=== PATIENT | female | born 1945 | race Caucasian/White ===

== ENCOUNTER 2018-06-26 20:57 | Observation (INO) ==
[2018-06-26] MEDS ORDERED: Aspirin 325 MG TABLET PO ONE (21:14)
[2018-06-26 21:29] LABS: Basophils # 0.1 K/mcL (0.0-0.2); Basophils % 0.8 %; Eosinophils # 0.1 K/mcL (0.0-0.6); Eosinophils % 1.8 %; Hematocrit 39.1 % (35.3-44.9); Hemoglobin 12.9 g/dL (11.5-15.4); Immature Granulocytes % 0.1 % (0-4); Lymphocytes # 2.7 K/mcL (0.6-4.6); Lymphocytes % 34.4 %; Mean Corpuscular Hemoglobin 30.5 pg (28.0-33.3); Mean Corpuscular Volume 92.4 fL (83.0-100.0); Mean Platelet Volume 10.6 fL (9.4-12.4); Monocytes # 0.7 K/mcL (0.0-1.3); Monocytes % 8.4 %; Neutrophils # 4.2 K/mcL (1.6-8.9); Platelet Count 173 K/mcL (140-400); Red Blood Count 4.23 M/mcL (3.82-4.97); Red Cell Distribution Width 12.3 % (11.5-14.5); Segmented Neutrophils % 54.5 %
--- NOTE | 2018-06-26 21:51 | Emergency Department Note ---
Disposition Clinical Impression: Chest pain Qualifiers: Chest pain type: unspecified Qualified Code(s): R07.9 - Chest pain, unspecified Disposition: Admitted As Inpatient Condition: Good General Adult HPI - General Chief complaint: ED Chest Pain Stated complaint: cp Time Seen by Provider: 06/26/18 21:04 Source: patient, family Mode of arrival: ambulatory Limitations: no limitations Nursing Notes Reviewed: Yes Vital Signs Reviewed: Yes - History of Present Illness HPI Narrative: 72-year-old female with significant past medical history of atrial fibrillation currently on eliquis presenting to the emergency department chief complaint of chest pain. Patient states his evening after she ate she had upper epigastric and lower substernal severe chest pressure. Radiated across her chest. Denies vomiting or diaphoresis. Does disclose mild nausea. Patient denies any history of coronary artery disease. Has never had a cardiac workup. Patient chest pain-free at this time. Patient states at first she thought it was her acid reflux that she was recently placed on Protonix and Carafate but that it felt different because she has never had pressure in this area before. Patient denies any recent illnesses, fevers, abdominal pain. Patient did have a pa cemaker placed in October and states she has been mildly short of breath since but this is unchanged. Pain Scale: 0 - Related Data Allergies Allergy/AdvReac Type Severity Reaction Status Date / Time No Known Allergies Allergy Verified 06/26/18 21:00 Limitations: ROS unobtainable due to patients medical condition Constitutional: Denies: fever, chills, weakness Eyes: Reports: as per HPI ENT ED: Reports: as per HPI Cardiovascular: Reports: chest pain, dyspnea on exertion. Denies: palpitations Respiratory: Reports: dyspnea. Denies: cough, wheezes, hemoptysis Gastrointestinal: Reports: nausea. Denies: abdominal pain, vomiting Genitourinary: Reports: as per HPI Musculoskeletal: Reports: as per HPI Integumentary: Reports: as per HPI Neurological: Denies: weakness, numbness, paresthesias Psychiatric: Reports: as per HPI Endocrine: Reports: as per HPI Hematological/Lymphatic: Reports: as per HPI Allergic/Immunologic: Reports: as per HPI Past Medical History - Past Medical History Attestation: Yes The following information was validated with the patient. Medical history: Reports: atrial fibrillation, hyperlipidemia, hypertension Psychiatric history: Reports: depression - Social History Smoking Status: Never smoker Alcohol use: Reports: rarely Drug use: Reports: none Physical Exam - General Limitations: no limitations General appearance: alert, in no apparent distress - Head Head exam: atraumatic, normocephalic, normal inspection - Eye Eye exam: Present: normal appearance. Absent: scleral icterus, conjunctival injection - ENT ENT exam: normal exam, mucous membranes moist - Neck Neck exam: Present: normal inspection, full ROM. Absent: tenderness, meningismus - Chest Chest inspection: Present: normal inspection, symmetric chest wall rise. Absent: tenderness, rash - Respiratory Respiratory exam: Present: normal lung sounds bilaterally. Absent: respiratory distress, wheezes - Cardiovascular Cardiovascular exam: Present: regular rate, normal rhythm, normal heart sounds - Abdominal Exam Abdominal exam: Present: soft, Non-Tender. Absent: distention, guarding, rebound - Extremities Exam Extremities exam: Present: normal inspection, full ROM - Neurological Exam Neurological exam: Present: alert, oriented X3 - Psychiatric Psychiatric exam: Present: normal affect, normal mood - Skin Skin exam: Present: warm, intact Course Course Narrative: 72-year-old male presenting for chest pain. In the room patient is alert and oriented 3 and hemodynamically stable. Patient chest pain-free at this time. Chest pain occurred just prior to arrival. Due to patient's history and age patient will most likely be admitted for chest pain rule out. We will obtain chest pain workup including EKG, troponin and chest x-ray. Disposition most likely admission the pending results. Patient agreed with this plan. - Reevaluation(s) Reevaluation #1: Patient's laboratory analysis showed elevated creatinine. No other lab analysis to compare to at this time. Otherwise labs within normal limits. Chest x-ray within normal limits. Patient has remained chest pain-free throughout her stay. She is alert and oriented 3 and hemodynamically stable. Provided a full dose aspirin. At this time will plan to admit the patient for further chest pain rule out. I spoke with the hospitalist propellant charge zone assembler Dr. Bansal who agrees to accept the patient at this time. He would like us to start maintenance fluids for the patient at 100 mL per hour. Vital Signs Temperature 98.0 F 06/26/18 21:00 Pulse Rate 60 06/26/18 21:00 Respiratory Rate 17 06/26/18 21:00 Blood Pressure 162/80 06/26/18 21:00 O2 Sat by Pulse Oximetry 95 06/26/18 21:00 Temperature 98.0 F 06/26/18 21:00 Pulse Rate 60 06/26/18 21:13 Respiratory Rate 14 06/26/18 21:13 Blood Pressure 148/83 06/26/18 21:13 O2 Sat by Pulse Oximetry 98 06/26/18 21:13 Oxygen Delivery Oxygen Delivery Room Air Medical Decision Making - Lab Data Result diagrams: 06/26/18 21:24 06/26/18 21:24 Lab Results 06/26/18 06/26/18 Range/Units 21:24 21:24 WBC 7.7 (4.3-11.1) K/mcL RBC 4.23 (3.82-4.97) M/mcL Hgb 12.9 (11.5-15.4) g/dL Hct 39.1 (35.3-44.9) % MCV 92.4 (83.0-100.0) fL MCH 30.5 (28.0-33.3) pg MCHC 33.0 (31.6-35.5) g/dL RDW 12.3 (11.5-14.5) % Plt Count 173 (140-400) K/mcL MPV 10.6 (9.4-12.4) fL Immature Gran % 0.1 (0-4) % Seg Neutrophils % 54.5 % Lymphocytes % 34.4 % Monocytes % 8.4 % Eosinophils % 1.8 % Basophils % 0.8 % Neutrophils # 4.2 (1.6-8.9) K/mcL Lymphocytes # 2.7 (0.6-4.6) K/mcL Monocytes # 0.7 (0.0-1.3) K/mcL Eosinophils # 0.1 (0.0-0.6) K/mcL Basophils # 0.1 (0.0-0.2) K/mcL Sodium 139 (136-145) mEq/L Potassium 3.7 (3.5-5.1) mEq/L Chloride 102 (98-107) mEq/L Carbon Dioxide 28 (23-29) mEq/L BUN 24 H (8-23) mg/dL Creatinine 1.58 H (0.60-1.20) mg/dL Est GFR ( Amer) 39 L (> 60) Est GFR (Non-Af Amer) 32 L (> 60) BUN/Creatinine Ratio 15 (6-26) Glucose 131 H (70-105) mg/dL Calculated Osmolality 294 (280-300) Calcium 10.3 (8.6-10.3) mg/dL Troponin I < 0.03 (< 0.04) ng/mL - EKG Data EKG #1 EKG attestation: Yes I reviewed and interpreted this EKG. EKG results narrative: Atrial paced rhythm. 60 beats per minute. AL interval 173, QRS 111, QTC 426. Significant artifact. No sign of acute ST segment elevation or ischemia.
[2018-06-26 21:53] LABS: BUN/Creatinine Ratio 15 (6-26); Blood Urea Nitrogen 24 mg/dL (8-23); Calcium 10.3 mg/dL (8.6-10.3); Carbon Dioxide 28 mEq/L (23-29); Chloride 102 mEq/L (98-107); Glucose 131 mg/dL (70-105); Osmolality,Calculated 294 (280-300); Potassium 3.7 mEq/L (3.5-5.1); Sodium 139 mEq/L (136-145); eGFR For Non-African Americans 32 (> 60)
[2018-06-26 21:54] LABS: Troponin I < 0.03 ng/mL (< 0.04)
--- NOTE | 2018-06-26 22:31 | Emergency Department Note ---
Disposition Clinical Impression: Chest pain Qualifiers: Chest pain type: unspecified Qualified Code(s): R07.9 - Chest pain, unspecified Disposition: Admitted As Inpatient Condition: Good Referrals: Connie Benítez MD [Primary Care Provider] - General Adult HPI - General Chief complaint: ED Chest Pain Stated complaint: cp Time Seen by Provider: 06/26/18 21:04 Source: patient, family Mode of arrival: ambulatory Limitations: no limitations Nursing Notes Reviewed: Yes Vital Signs Reviewed: Yes - History of Present Illness Pain Scale: 0 - Related Data Home Medications Medication Instructions Recorded Confirmed Escitalopram [Lexapro] 20 mg PO 06/26/18 Hydrochlorothiazide [Microzide] 06/26/18 06/26/18 Pantoprazole Sodium [Protonix] 40 mg PO 06/26/18 Propafenone HCl [Rythmol Sr] 225 mg PO 06/26/18 Allergies Allergy/AdvReac Type Severity Reaction Status Date / Time No Known Allergies Allergy Verified 06/26/18 21:00 Constitutional: Denies: fever, chills, weakness Eyes: Reports: as per HPI ENT ED: Reports: as per HPI Cardiovascular: Reports: chest pain, dyspnea on exertion. Denies: palpitations Respiratory: Reports: dyspnea. Denies: cough, wheezes, hemoptysis Gastrointestinal: Reports: nausea. Denies: abdominal pain, vomiting Genitourinary: Reports: as per HPI Musculoskeletal: Reports: as per HPI Integumentary: Reports: as per HPI Neurological: Denies: weakness, numbness, paresthesias Psychiatric: Reports: as per HPI Endocrine: Reports: as per HPI Hematological/Lymphatic: Reports: as per HPI Allergic/Immunologic: Reports: as per HPI Past Medical History - Past Medical History Medical history: Reports: atrial fibrillation, hyperlipidemia, hypertension Psychiatric history: Reports: depression - Social History Smoking Status: Never smoker Alcohol use: Reports: rarely Drug use: Reports: none Physical Exam - General Limitations: no limitations General appearance: alert, in no apparent distress Course Vital Signs Temperature 98.0 F 06/26/18 21:00 Pulse Rate 60 06/26/18 21:00 Respiratory Rate 17 06/26/18 21:00 Blood Pressure 162/80 06/26/18 21:00 O2 Sat by Pulse Oximetry 95 06/26/18 21:00 Temperature 98.0 F 11/11/18 21:00 Pulse Rate 60 06/26/18 21:13 Respiratory Rate 14 06/26/18 21:13 Blood Pressure 148/83 06/26/18 21:13 O2 Sat by Pulse Oximetry 98 06/26/18 21:13 Oxygen Delivery Oxygen Delivery Room Air Medical Decision Making - Lab Data Lab results reviewed: Yes I reviewed the patient's lab results. Result diagrams: 06/26/18 21:24 06/26/18 21:24 Lab Results 06/26/18 06/26/18 Range/Units 21:24 21:24 WBC 7.7 (4.3-11.1) K/mcL RBC 4.23 (3.82-4.97) M/mcL Hgb 12.9 (11.5-15.4) g/dL Hct 39.1 (35.3-44.9) % MCV 92.4 (83.0-100.0) fL MCH 30.5 (28.0-33.3) pg MCHC 33.0 (31.6-35.5) g/dL RDW 12.3 (11.5-14.5) % Plt Count 173 (140-400) K/mcL MPV 10.6 (9.4-12.4) fL Immature Gran % 0.1 (0-4) % Seg Neutrophils % 54.5 % Lymphocytes % 34.4 % Monocytes % 8.4 % Eosinophils % 1.8 % Basophils % 0.8 % Neutrophils # 4.2 (1.6-8.9) K/mcL Lymphocytes # 2.7 (0.6-4.6) K/mcL Monocytes # 0.7 (0.0-1.3) K/mcL Eosinophils # 0.1 (0.0-0.6) K/mcL Basophils # 0.1 (0.0-0.2) K/mcL Sodium 139 (136-145) mEq/L Potassium 3.7 (3.5-5.1) mEq/L Chloride 102 (98-107) mEq/L Carbon Dioxide 28 (23-29) mEq/L BUN 24 H (8-23) mg/dL Creatinine 1.58 H (0.60-1.20) mg/dL Est GFR ( Amer) 39 L (> 60) Est GFR (Non-Af Amer) 32 L (> 60) BUN/Creatinine Ratio 15 (6-26) Glucose 131 H (70-105) mg/dL Calculated Osmolality 294 (280-300) Calcium 10.3 (8.6-10.3) mg/dL Troponin I < 0.03 (< 0.04) ng/mL - Radiology Data Radiology results reviewed: Yes I reviewed the patient's radiology results. Chest X-Ray 06/26/18 21:05 IMPRESSION: No acute cardiopulmonary disease. D/ / Lj Navarro MD / Lj Navarro MD Interpreting Provider: Lj Navarro MD - EKG Data EKG #1 EKG attestation: Yes I reviewed and interpreted this EKG. EKG results narrative: EKG shows an atrial paced rhythm with ventricular rate of 60. No acute ST segment elevation or depression. Attestation Statement - Attestation Attestation: I, Leodan Ro MD, personally evaluated this patient and discussed their management with the resident physician. I reviewed the resident's note and agree with the documented findings, medical decision making, and plan of care. 72-year-old female presents to the emergency department with a complaint of an episode of lower substernal chest discomfort which she describes as like a pressure and tightness in the lower chest. This started around 5 PM and lasted 2-3 hours. Did radiate slightly towards the left chest but no radiation to the neck or jaw or shoulders or down the arms. No radiation to the back. No shortness of breath associated with the episode. No nausea or vomiting. No diaphoresis. No palpitations. Patient has a prior history of atrial fibrillation and bradycardia. She has a pacemaker. Patient denies chest pain at present. She has recently had some problems with gastritis and/or reflux however she states this discomfort this evening was totally different. On examination patient is a well-developed well-nourished well-appearing elderly female in no acute distress. She is alert and oriented 3. There is no cyanosis or diaphoresis. Chest is nontender to palpation. Breath sounds are clear and equal bilaterally. Heart regular rate and rhythm. Abdomen is soft and nontender with normal bowel sounds. Labs reviewed. Troponin negative. Chest x-ray negative. No acute changes on EKG. The hospitalist, Dr. Bansal, was consulted and accepted admission of the patient.
[2018-06-26] MEDS: 0.9 % Sodium Chloride 1,000 ML IVC SCH (22:37)
[2018-06-27] MEDS ORDERED: *HR* Promethazine 25 MG/ML VIAL IVP PRN (00:46)
[2018-06-27] MEDS ORDERED: Naloxone 0.4 MG/ML INJ IVP PRN (00:47)
[2018-06-27] MEDS ORDERED: traMADol 50 MG TABLET PO PRN (00:47)
[2018-06-27] MEDS ORDERED: Nitroglycerin 0.4 MG TAB.SUBL SL PRN (00:51)
[2018-06-27] MEDS ORDERED: GI Cocktail 40 ML EACH PO ONE (00:53)
[2018-06-27] MEDS: 0.9 % Sodium Chloride 1,000 ML IVC SCH (00:58)
[2018-06-27] MEDS ORDERED: 0.9 % Sodium Chloride 1,000 ML IVC SCH (01:00)
--- NOTE | 2018-06-27 01:18 | Internal Med History&Physical ---
Date of Encounter: 06/26/18 Time of Encounter: 23:55 Internal Medicine - H&P: HPI Chief complaint: CP Admitted From: Emergency Dept Plans for Post Hospital Care: Home History of present illness: Ms. Enriquez is a 72 year old female w/PMH of atrial fibrillation on Eliquis, HLD, HTN, GERD, early dementia, and AICD/pacemaker placement in October d/t bradycardia presents from the ED with chief complaint of chest pain that began approximately at 17:00 today while at rest. Patient describes chest pain as pressure in central chest without radiation, states pain was constant, and became progressively worse. Denies previous symptoms. Pt. states that she thought the pain may have been d/t her GERD but this pain was different. Reports father of [place] @ 84 and mother has cardiac hx. Denies diaphoresis, nausea, vomiting. Denies previous cardiac workup or history. No alleviating or aggravating factors. Patient denies recent illness, fever, chills, nausea, vomiting, headache, changes in vision, unusual bleeding, cough, chest congestion, abdominal pain, diarrhea, constipation, dizziness, lightheadedness, pre-syncope, syncope, numbness, or tingling. Past Med Surg Social Fam HX - Past Medical History Source: patient, old records reviewed Medical history: atrial fibrillation, dementia, GERD, hyperlipidemia, hypertension Additional medical history: bradicardia Psychiatric history: depression - Past Surgical History Surgical History: pacemaker/AICD - Social History Smoking Status: Never smoker Alcohol use: rarely Drug use: none Current living situation: Home Activity Level: Independent ambulation Recent Out of Country Travel Within the Last 8 Weeks: No Exposure or Possible Exposure to Illness During Travel: No - Family History Father Race: Family Member Ethnicity: Non- Living Status: Age at : 84 Cause of : [place] Hx Family Cardiac Disorders: Yes ([place], CAD) Mother Race: Family Member Ethnicity: Non- Living Status: Still Living Hx Family Cardiac Disorders: Yes (Pacemaker, Afib, Stents) Brother Race: Family Member Ethnicity: Non- Living Status: Still Living Hx Family Cardiac Disorders: Yes (HTN, HLD) Sister Race: Family Member Ethnicity: Non- Living Status: Still Living Hx Family Cardiac Disorders: Yes (HTN) Internal Medicine - H&P: Meds Apixaban [Eliquis] 5 mg PO BID 06/26/18 [History] Atorvastatin Calcium [Lipitor] 20 mg PO HS 06/26/18 [History] Biotin 5 mg PO DAILY 06/26/18 [History] Cholecalciferol (Vitamin D3) [Vitamin D] 2,000 unit PO DAILY 06/26/18 [History] Escitalopram [Lexapro] 20 mg PO DAILY 06/26/18 [History] Escitalopram [Lexapro] 20 mg PO DAILY 06/26/18 [History] Gluc/Ankit-MSM#1/C/David/Glen/Bor [Osteo Bi-Flex Caplet] 2 each PO DAILY 06/26/18 [History] Hydrochlorothiazide [Microzide] 12.5 mg PO DAILY 06/26/18 [History] Irbesartan [Avapro] 150 mg PO DAILY 06/26/18 [History] Memantine [Namenda] 5 mg PO BID 06/26/18 [History] Metoprolol [Lopressor] 12.5 mg PO DAILY 06/26/18 [History] Multivit/Iron/FA/K/Herb No.244 [Alive [employer] Mv Tablet] 1 each PO DAILY 06/26/18 [History] Pantoprazole Sodium [Protonix] 40 mg PO DAILY 06/26/18 [History] Propafenone HCl [Rythmol Sr] 225 mg PO BID 06/26/18 [History] Sucralfate [Carafate] 1 gm PO 0730,1630 06/26/18 [History] Allergy/AdvReac Type Severity Reaction Status Date / Time No Known Allergies Allergy Verified 06/26/18 21:00 All Systems PM: A 10-system review of systems was performed and is negative for pertinent findings except as documented above in the HPI. - Constitutional Constitutional: no chills, no fever(s), no night sweats - EENT Eyes: no change in vision, no discharge, no pain, no photophobia Ears: no ear discharge, no ear pain, no tinnitus Nose, mouth and throat: no dysphagia, no nasal discharge, no neck pain, no sore throat - Breasts Breasts: as per HPI - Cardiovascular Cardiovascular ROS IM: as per HPI, chest pain, no diaphoresis, no dyspnea, no lightheadedness, no palpitations, no syncope - Respiratory Respiratory: no cough, no dyspnea, no wheezing, no excessive phlegm production - Gastrointestinal Gastrointestinal: as per HPI, heartburn, no abdominal pain, no diarrhea, no hematemesis, no hematochezia, no melena, no nausea, no vomiting - Genitourinary Genitourinary: no change in urinary stream, no dysuria, no flank pain, no hematuria Menstruation: as per HPI - Musculoskeletal Musculoskeletal ROS IM: no numbness, no tingling - Integumentary Integumentary IM: no rash, no unusual bruising - Neurological Neurological ROS: no confusion, no convulsions, no focal weakness, no numbness, no tingling, no tremor(s) - Psychiatric Psychiatric: as per HPI, depression - Endocrine Endocrine IM: as per HPI - Hematologic/Lymphatic Hematologic/Lymphatic: no easy bruising - Allergic/Immunologic Allergic/Immunologic: as per HPI - Constitutional Vitals: Temp Pulse Resp BP Pulse Ox 97.6 F 60 16 160/81 98 06/26/18 23:40 06/26/18 23:40 06/26/18 23:40 06/26/18 23:40 06/26/18 23:40 General appearance: Present: cooperative, A&O X 3, pleasant, no acute distress, obese, answers questions appropriately Exam: Patient examined at bedside. Patient was resting comfortably in bed and denied any chest pain symptoms during examination. Patient reports symptoms began at approximately 5 PM today without exertion and without radiation. Patient does report history of GERD so GI cocktail and IVP Protonix ordered. Pacemaker/AICD placed in October 2017 due to bradycardia. Patient on Eliquis due to history of atrial fibrillation. Patient denies any other complaints at this time. VS: 97.6F temp, HR 60, RR 16, BP 160/81, SPO2 98% on room air. - Head Head exam: Present: atraumatic, normocephalic - Eye Eye exam: Present: PERRL, conjuntiva pink, sclera anicteric Pupils: Present: PERRL - ENT ENT exam: Present: normal exam - Neck Neck exam general surgery: Present: normal inspection, supple, trachea midline. Absent: lymphadenopathy - Respiratory Respiratory exam: Present: CTAB. Absent: accessory muscle use, rales, rhonchi, wheezes - Cardiovascular Cardiovascular exam: Present: RRR, +S1, +S2. Absent: diastolic murmur, gallop, rubs, systolic murmur - GI/Abdominal GI/Abdominal exam: Present: normal bowel sounds, soft, no peritoneal signs. Absent: distended, tenderness - Rectal Rectal exam: Present: deferred - Additional comments: exam deferred. - Extremities Exam Extremities exam: Present: normal inspection, warm, radial pulses palpable and symmetrical. Absent: calf tenderness, cyanotic, pedal edema - Back Exam Back exam: Present: normal inspection - Neurological Exam Neurological exam: Present: alert, CN II-XII intact, oriented X3, no focal deficits. Absent: pronater drift, facial droop, speech deficit - Psychiatric Psychiatric exam: Present: normal affect, normal mood - Skin Skin exam: Present: dry, intact Internal Med - H&P Results - Labs CBC & Chem 7: 06/27/18 03:13 06/26/18 21:24 Labs: Short CBC 06/26/18 Range/Units 21:24 WBC 7.7 (4.3-11.1) K/mcL Hgb 12.9 (11.5-15.4) g/dL Hct 39.1 (35.3-44.9) % Plt Count 173 (140-400) K/mcL Neutrophils # 4.2 (1.6-8.9) K/mcL BMP 06/26/18 21:24 Sodium 139 Potassium 3.7 Chloride 102 Carbon Dioxide 28 BUN 24 H Creatinine 1.58 H Glucose 131 H Calcium 10.3 Cardiac Enzymes 06/26/18 Range/Units 21:24 Troponin I < 0.03 (< 0.04) ng/mL - EKG Data Prior EKG available for review: no EKG comments: 06/27/18 03:15 EKG dated 06/26/18 shows electronic atrial pacemaker. - Impressions ITS Impressions Chest X-Ray 06/26/18 21:05 IMPRESSION: No acute cardiopulmonary disease. D/ / Lj Navarro MD / Lj Navarro MD Interpreting Provider: Lj Navarro MD - Diagnostic Studies Chest x-ray Additional comments: Impressions Chest X-Ray 06/26/18 21:05 IMPRESSION: No acute cardiopulmonary disease. D/ / Lj Navarro MD / Lj Navarro MD Interpreting Provider: Lj Navarro MD - Assessment and plan (1) Chest pain Current Visit: Yes Status: Acute Assessment and plan: Acute CP that began approximately at 17:00 today while at rest. Patient describes chest pain as pressure in central chest without radiation, states pain was constant, and became progressively worse. Denies previous symptoms. Pt. states that she thought the pain may have been d/t her GERD but this pain was different. Reports father of [place] @ 84 and mother has cardiac hx. Denies diaphoresis, nausea, vomiting. Denies previous cardiac workup or history. No alleviating or aggravating factors. Initial troponin <0.03. Will trend. ASA. 80 mg Lipitor ONCE. SL nitro PRN ordered. Echocardiogram. NPO Wednesday @ 00:01 for a.m. nuclear pharm stress test if troponins remain normal. Consider adding Cardiology consult if troponins, Echocardiogram, and/or stress test results abnormal. Continuous cardiac telemetry. Supplemental O2 w/titration PRN. Pt. is high risk for cardiac event and further morbidity d/t current CP at rest, familial hx of cardiac disease (father of [place], mother has atrial fibrillation/pacemaker-AICD/stents), hx; and risk factors of atrial fibrillation, HTN, and HLD. Observation. Qualifiers: Chest pain type: other chest pain Qualified Code(s): R07.89 - Other chest pain; R07.8 - Other chest pain (2) Atrial fibrillation Current Visit: Yes Status: Acute Assessment and plan: Hx of paroxysmal atrial fibrillation. Pacemaker/AICD placed in October d/t bradycardia. Continuous cardiac telemetry. Continue patient's Rythmol and Eliquis. Qualifiers: Atrial fibrillation type: paroxysmal Qualified Code(s): I48.0 - Paroxysmal atrial fibrillation (3) HLD (hyperlipidemia) Current Visit: Yes Status: Chronic Assessment and plan: Hx of chronic HLD. Lipid panel in a.m. labs. Continue pts. Lipitor. One-time high dose of 80 mg tonight and 20 mg HS starting tomorrow. Qualifiers: Hyperlipidemia type: pure hypercholesterolemia Qualified Code(s): E78.00 - Pure hypercholesterolemia, unspecified; E78.0 - Pure hypercholesterolemia (4) HTN (hypertension) Current Visit: Yes Status: Chronic Assessment and plan: Hx of chronic HTN. Monitor pt. and VS. Continue pts. Hydrochlorothiazide, Avapro, and lopressor. Qualifiers: Hypertension type: essential hypertension Qualified Code(s): I10 - Essential (primary) hypertension (5) GERD (gastroesophageal reflux disease) Current Visit: Yes Status: Chronic Assessment and plan: Hx of chronic GERD. Will hold pts. PO Protonix and administer 40 mg IVP Protonix daily. GI cocktail ordered. Continue Carafate. IVP Phenergan 12.5 mg Q6HR PRN for N/V. Monitor I&O. Qualifiers: Esophagitis presence: esophagitis presence not specified Qualified Code(s): K21.9 - Gastro-esophageal reflux disease without esophagitis (6) Dementia Current Visit: Yes Status: Chronic Assessment and plan: Hx of early-onset dementia. Pt. reports improvement w/Namenda. Will continue. Qualifiers: Dementia type: unspecified type Dementia behavioral disturbance: without behavioral disturbance Qualified Code(s): F03.90 - Unspecified dementia without behavioral disturbance (7) DVT prophylaxis Current Visit: Yes Status: Acute Assessment and plan: Continue patient's by mouth Eliquis for DVT prophylaxis. Monitor patient for signs of bleeding. - Time Spent With Patient Total time spent is greater than 50% in coordination of care (as documented) at patient's floor/unit and/or counseling patient: Greater than 35 minutes
[2018-06-27] MEDS: Pantoprazole 40 MG VIAL IVP SCH ×2 (02:01→10:10)
[2018-06-27 03:29] LABS: Basophils # 0.1 K/mcL (0.0-0.2); Basophils % 0.8 %; Eosinophils # 0.1 K/mcL (0.0-0.6); Eosinophils % 2.1 %; Hemoglobin 11.9 g/dL (11.5-15.4); Immature Granulocytes % 0.2 % (0-4); Lymphocytes # 2.7 K/mcL (0.6-4.6); Lymphocytes % 40.4 %; Mean Corpuscular HGB Conc 33.1 g/dL (31.6-35.5); Mean Corpuscular Hemoglobin 30.5 pg (28.0-33.3); Mean Corpuscular Volume 92.3 fL (83.0-100.0); Mean Platelet Volume 10.7 fL (9.4-12.4); Monocytes # 0.6 K/mcL (0.0-1.3); Neutrophils # 3.1 K/mcL (1.6-8.9); Platelet Count 149 K/mcL (140-400); Red Cell Distribution Width 12.3 % (11.5-14.5); Segmented Neutrophils % 47.5 %
[2018-06-27 03:39] LABS: INR 1.3; Prothrombin Time 14.8 Seconds (9.4-12.1)
[2018-06-27 03:42] LABS: Activated Partial Thrombo Time 41.1 Seconds (26.0-36.0)
[2018-06-27 03:44] LABS: Albumin 3.8 g/dL (3.5-5.7); Albumin/Globulin Ratio 1.6 (1.1-2.2); Bilirubin,Total 0.4 mg/dL (0.3-1.0); Calcium 8.8 mg/dL (8.6-10.3); Chol/HDL Ratio 2.6 (0-4.9); Globulin 2.4 g/dL (2.4-3.5); Magnesium 1.7 mg/dL (1.6-2.6); Potassium 3.6 mEq/L (3.5-5.1); Total Protein 6.2 g/dL (6.4-8.9)
[2018-06-27] MEDS ORDERED: Regadenoson 0.4 MG/5 ML SYRINGE IVP ONE (05:57)
[2018-06-27] MEDS ORDERED: Sucralfate 1 GM TABLET PO SCH (07:30)
[2018-06-27 07:42] VITALS: BP 159/80
[2018-06-27] MEDS ORDERED: Multivit/Ca/Min/Fe/FA 1 TAB TABLET PO SCH (09:00)
[2018-06-27] MEDS ORDERED: hydroCHLOROthiazide 25 MG TABLET PO SCH (09:00)
[2018-06-27] MEDS ORDERED: (Biotin [Biotin] 5 MG) PO SCH (09:00)
[2018-06-27] MEDS ORDERED: Aspirin Enteric Coated 81 MG Tablet PO SCH (09:00)
[2018-06-27] MEDS ORDERED: PROPAFENONE HCL 225 MG PO SCH (09:00)
[2018-06-27] MEDS ORDERED: Cholecalciferol (D-3) 1,000 UNIT TABLET PO SCH (09:00)
[2018-06-27] MEDS ORDERED: Apixaban 5 MG TABLET PO SCH (09:00)
[2018-06-27 10:45] LABS: Estimated Average Glucose 123 mg/dl; Hemoglobin A1C 5.9 %
--- NOTE | 2018-06-27 11:32 | Discharge Summary ---
- NOTES TO OUTPATIENT PROVIDER Notes to Outpatient Provider: Follow with PCP in one week. please keep your regular appointment with the party demonstrator as schedule before. please take Protonix twice a day for one week because of your heartburn and epigastric pain. Once the pain gets better then you can go back on regular daily schedule dose Orders not resulted at time of discharge: Pending orders 06/27/18 00:47 EV echocardiogram Routine 06/27/18 00:52 NM usha perf SPECT multi [NM] Routine 06/28/18 04:00 Complete Blood Count [HEME] AM 0400 Comprehensive Metabolic Panel AM 0400 06/29/18 04:00 Complete Blood Count [HEME] AM 0400 Comprehensive Metabolic Panel AM 04006/30/18 04:00 Complete Blood Count [HEME] AM 0400 Comprehensive Metabolic Panel AM 0400 Date of Encounter: 06/27/18 Time of Encounter: 11:28 - Discharge Diagnosis (1) Chest pain Priority: Primary Status: Acute Qualifiers: Chest pain type: other chest pain Qualified Code(s): R07.89 - Other chest pain; R07.8 - Other chest pain (2) HLD (hyperlipidemia) Priority: Secondary Status: Chronic Qualifiers: Hyperlipidemia type: pure hypercholesterolemia Qualified Code(s): E78.00 - Pure hypercholesterolemia, unspecified; E78.0 - Pure hypercholesterolemia (3) HTN (hypertension) Priority: Secondary Status: Chronic Qualifiers: Hypertension type: essential hypertension Qualified Code(s): I10 - Essential (primary) hypertension (4) GERD (gastroesophageal reflux disease) Priority: Secondary Status: Chronic Qualifiers: Esophagitis presence: esophagitis presence not specified Qualified Code(s): K21.9 - Gastro-esophageal reflux disease without esophagitis (5) Dementia Priority: Secondary Status: Chronic Qualifiers: Dementia type: unspecified type Dementia behavioral disturbance: without behavioral disturbance Qualified Code(s): F03.90 - Unspecified dementia without behavioral disturbance (6) DVT prophylaxis Priority: Secondary Status: Acute (7) Atrial fibrillation Priority: Secondary Status: Acute Qualifiers: Atrial fibrillation type: paroxysmal Qualified Code(s): I48.0 - Paroxysmal atrial fibrillation Hospital course: Ms. 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 Patient describes chest pain as pressure in central chest without radiation, states pain was constant, and became progressively worse. Denies previous symptoms. Pt. states that she thought the pain may have been d/t her GERD but this pain was different. Patient was admitted in the hospital and placed her on roller picker. We checked her serial troponin X3 which came back is negative. Since patient is high risk for ACS she did go for nuclear stress test which came back is negative for ischemia. Her chest pain seems to be atypical and GERD related which resolved now. I did recommend her to take PPI twice a day for one week and continue regular carafate - Time Spent with Patient Total time spent providing and/or coordinating discharge services: - Discharge Medications Prescriptions: Aspirin Enteric Coated [Aspirin EC] 81 mg PO DAILY #30 tablet.dr Lott Medications: Apixaban [Eliquis] 5 mg PO BID 06/26/18 [History] Atorvastatin Calcium [Lipitor] 20 mg PO HS 06/26/18 [History] Biotin 5 mg PO DAILY 06/26/18 [History] Cholecalciferol (Vitamin D3) [Vitamin D3] 2,000 unit PO DAILY 06/26/18 [History] Escitalopram [Lexapro] 20 mg PO DAILY 06/26/18 [History] Escitalopram [Lexapro] 20 mg PO DAILY 06/26/18 [History] Gluc/Ankit-MSM#1/C/David/Glen/Bor [Osteo Bi-Flex Caplet] 2 each PO DAILY 06/26/18 [History] Hydrochlorothiazide [Microzide] 12.5 mg PO DAILY 06/26/18 [History] Irbesartan [Avapro] 150 mg PO DAILY 06/26/18 [History] Memantine [Namenda] 5 mg PO BID 06/26/18 [History] Metoprolol [Lopressor] 12.5 mg PO DAILY 06/26/18 [History] Multivit/Iron/FA/K/Herb No.244 [[employer] Mv Tablet] 1 each PO DAILY 06/26/18 [History] Pantoprazole Sodium [Protonix] 40 mg PO DAILY 06/26/18 [History] Propafenone HCl [Rythmol Sr] 225 mg PO BID 06/26/18 [History] Sucralfate [Carafate] 1 gm PO 0730,1630 06/26/18 [History] Aspirin Enteric Coated [Aspirin EC] 81 mg PO DAILY #30 tablet. 06/27/18 [Rx] Allergies/Adverse Reactions: Allergy/AdvReac Type Severity Reaction Status Date / Time No Known Allergies Allergy Verified 06/26/18 21:00 Date of admission: 06/26/18 22:28 Primary care physician: Connie Benítez MD Consults: 06/27/18 00:50 Consult to Tile Layer Drainage [CONS] Routine Reason for SW Consult: Please assess patient for possible home need for post- discharge planning. - Constitutional Vitals: Temp Pulse Resp BP Pulse Ox 97.9 F 58 16 159/80 95 06/27/18 07:42 06/27/18 07:42 06/27/18 07:42 06/27/18 07:42 06/27/18 07:42 General appearance: Present: cooperative, A&O X 3, pleasant, no acute distress, obese, answers questions appropriately Exam: Gen: Alert, awake, Oriented to time,place and person Chest: Diminished breath sounds B/L, No wheezing, No crackles, No rales Heart: S1S2+ RRR No murmurs Abd: Soft, NT, BS +, No organomegaly Ext: No edema, pulses are palpable, No calf tenderness Neuro : Benign findings Skin: No rash. - Patient Status Disposition: Home, Self-Care Condition: Good Overall status at discharge: patient is back to baseline - Discharge Instructions Forms: ED Satisfaction Letter - Diet and Activity Activity: increase activity as tolerated Diet: low salt diet
--- NOTE | 2018-06-28 20:02 | Electrocardiograph Report ---
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
--- NOTE | 2018-06-28 20:04 | Electrocardiograph Report ---
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
== END 2018-06-27 12:47 | disposition home or self-care (01) ==
LOC: 3BNU 20:57 → EMEROOARM 20:57 → 3BNU 23:24
PROVIDERS: ADMIT Internal Medicine; ATTEND Internal Medicine